=== PATIENT | male | born 1935 | race Hispanic/Latino ===

== ENCOUNTER 2020-02-26 13:09 | Observation (INO) | payer MEDICARE, OTHER ==
[~2020-02-26] VITALS: Ht 152.4 cm; Wt 56.0 kg
[~2020-02-26 13:09] MED LIST: ASPI-1197 PO; CLOP75TA14 PO; GLIP10TA9 PO; LISI-613 PO; METF-446 PO; SIMV40TA59 PO
[2020-02-26] MEDS ORDERED: ASPIRIN 325 MG TABLET ONE (13:35)
[2020-02-26 13:44] LABS: BASOPHILS % (AUTO) 0.6 % (0.0-5.0); EOSINOPHILS % (AUTO) 4.5 % (0.0-8.0); HEMATOCRIT 30.6 % (42-54); LYMPHOCYTES % (AUTO) 24.1 % (21.0-51.0); MEAN CORPUSCULAR HEMOGLOBIN 26.3 pg (27.0-33.0); MEAN CORPUSCULAR HGB CONC 31.7 g/dL (32.0-36.0); MEAN CORPUSCULAR VOLUME 82.9 fL (79-99); MONOCYTES % (AUTO) 7.2 % (3.0-13.0); NEUTROPHILS % (AUTO) 63.4 % (40.0-77.0); PLATELET COUNT (AUTO) 193 K/uL (130-400); RED BLOOD CELL COUNT(AUTO) 3.69 MIL/uL (4.50-6.20); RED CELL DISTRIBUTION WIDTH 13.6 % (11.0-15.5); WHITE BLOOD COUNT (AUTO) 6.4 K/uL (4.8-10.8)
[2020-02-26 13:55] LABS: CREATININE 1.4 mg/dL (0.5-1.5); POTASSIUM 4.4 mmol/L (3.5-5.1)
[2020-02-26 13:56] LABS: INR 1.06 (0.85-1.15); PROTHROMBIN TIME 11.3 SEC (9.6-11.6)
[2020-02-26 13:58] LABS: PARTIAL THROMBOPLASTIN TIME 31.2 SEC (26.3-35.5)
[2020-02-26 13:59] LABS: ALBUMIN 3.4 g/dL (3.5-5.0); BILIRUBIN,TOTAL 0.3 mg/dL (0.2-1.0); TOTAL PROTEIN, SERUM 6.6 g/dL (6.0-8.3)
[2020-02-26 14:11] LABS: B-TYPE NATRIURETIC PEPTIDE 466 pg/mL (0-100)
[2020-02-26] MEDS ORDERED: NITROGLYCERIN 0.4 MG SL TAB SL PRN (16:00)
[2020-02-26] MEDS ORDERED: ONDANSETRON HCL 4 MG/2 ML VIAL IV PRN (16:00)
[2020-02-26] MEDS ORDERED: ACETAMINOPHEN 325 MG TAB PO PRN ×2 (16:00)
[2020-02-26 16:38] LABS: HEMOGLOBIN A1C 8.1 % (4.0-6.0)
[2020-02-26 16:45] LABS: MAGNESIUM 1.7 mg/dL (1.80-2.40); THYROID STIMULATING HORMONE 2.85 uIU/mL (0.36-3.74)
[2020-02-26] MEDS ORDERED: MAGNESIUM 2GM PREMIX 50ML 50 ML IV ONE (17:00)
[2020-02-26] MEDS ORDERED: POTASSIUM CHLORIDE 10MEQ/100ML 100 ML IV PRN (17:30)
[2020-02-26] MEDS ORDERED: LIDOCAINE HCL-MPF 1% 2ML VIAL IV PRN (17:30)
[2020-02-26] MEDS ORDERED: POTASSIUM CHLORIDE 10 MEQ/TAB.SR PO PRN (17:30)
[2020-02-26] MEDS ORDERED: POTASSIUM CHLORIDE 10% ELIXIR 20 MEQ/15 ML UDCUP PO PRN (17:30)
[2020-02-26] MEDS ORDERED: MAGNESIUM 2GM PREMIX 50ML 50 ML IV SCH (17:30)
[2020-02-26 18:07] LABS: APPEARANCE,URINE Clear (CLEAR); BILIRUBIN,URINE Negative (NEGATIVE); COLOR,URINE Yellow (YELLOW); GLUCOSE, URINE (UA) Negative (NEGATIVE); KETONES,URINE Negative (NEGATIVE); LEUKOCYTE ESTERASE ,URINE Negative (NEGATIVE); NITRATE,URINE Negative (NEGATIVE); OCCULT BLOOD,URINE Negative (NEGATIVE); PROTEIN,URINE POS 1+ mg/dL (NEGATIVE); UROBILINOGEN,URINE 0.2 mg/dL (0.2-1.0)
[2020-02-26 18:28] LABS: BACTERIA,URINE Rare /HPF (None Seen); MUCUS,URINE Few LPF (None Seen); RBC,URINE 0-1 /HPF (0-1); SQUAMOUS EPITHELIAL CELL,UR 0-2 /HPF (0-2)
[2020-02-26] MEDS ORDERED: FAMOTIDINE 20MG TAB 20 MG TAB PO SCH (21:00)
[2020-02-26] MEDS ORDERED: ATORVASTATIN CALCIUM 20 MG TABLET PO SCH (21:00)
[2020-02-26] MEDS ORDERED: METOPROLOL TARTRATE 25 MG TAB PO SCH (21:00)
[2020-02-27 04:08] LABS: BASOPHILS % (AUTO) 0.7 % (0.0-5.0); LYMPHOCYTES % (AUTO) 21.5 % (21.0-51.0); MEAN CORPUSCULAR HEMOGLOBIN 26.2 pg (27.0-33.0); MEAN CORPUSCULAR HGB CONC 32.2 g/dL (32.0-36.0); MEAN CORPUSCULAR VOLUME 81.4 fL (79-99); MONOCYTES % (AUTO) 6.2 % (3.0-13.0); NEUTROPHILS % (AUTO) 67.3 % (40.0-77.0); PLATELET COUNT (AUTO) 207 K/uL (130-400); RED BLOOD CELL COUNT(AUTO) 3.93 MIL/uL (4.50-6.20); RED CELL DISTRIBUTION WIDTH 13.5 % (11.0-15.5)
[2020-02-27 04:17] LABS: CREATININE 1.3 mg/dL (0.5-1.5); POTASSIUM 4.1 mmol/L (3.5-5.1)
[2020-02-27] MEDS ORDERED: ENOXAPARIN SODIUM 40 MG/0.4 ML SYRINGE SQ SCH (09:00)
[2020-02-27] MEDS ORDERED: ASPIRIN 325 MG TABLET PO SCH (09:00)
[2020-02-27] MEDS ORDERED: ENOXAPARIN SODIUM 40 MG/0.4 ML SYRINGE SQ ONE (09:20)
[2020-02-27] MEDS ORDERED: METOPROLOL TARTRATE 25 MG TAB ONE (09:20)
[2020-02-27] MEDS ORDERED: ASPIRIN 325 MG TABLET ONE (09:21)
[2020-02-27] MEDS ORDERED: ASPIRIN 81MG TAB.CHEW ONE (09:22)
== END 2020-02-27 16:48 | disposition home or self-care (01) ==
LOC: EDH 13:09 → EDHIP 15:23
PROVIDERS: ADMIT Hospitalist; ATTEND Hospitalist
DX: R07.89 Other chest pain (principal); Z20.828 Contact with and (suspected) exposure to other viral communicable diseases; I12.9 Hypertensive chronic kidney disease with stage 1 through stage 4 chronic kidney disease, or unspecified chronic kidney disease; E11.22 Type 2 diabetes mellitus with diabetic chronic kidney disease; N18.31 Chronic kidney disease, stage 3a; E11.51 Type 2 diabetes mellitus with diabetic peripheral angiopathy without gangrene; E78.5 Hyperlipidemia, unspecified; D64.9 Anemia, unspecified; I24.9 Acute ischemic heart disease, unspecified; I77.89 Other specified disorders of arteries and arterioles; Z79.82 Long term (current) use of aspirin; Z79.84 Long term (current) use of oral hypoglycemic drugs; Z79.899 Other long term (current) drug therapy
CPT/HCPCS: 36415 ×2; 71045; 80048; 80053; 80061; 81001; 82550; 83036; 83735 ×2; 83880; 84443; 84484 ×5; 85025 ×2; 85610; 85730; 87426; 93005 ×6; 99285; G0378 ×25; J1650; J3475; U0003

== ENCOUNTER → 2020-05-12 | Outpatient (CLI) | payer OTHER ==
[~2020-05-12] MED LIST changes: -LISI-613 PO; +LISI20TA24 PO
== END | disposition home or self-care (01) ==
LOC: SHCH 13:12
PROVIDERS: ATTEND Internal Medicine Cardiovascular Disease
DX: I21.4 Non-ST elevation (NSTEMI) myocardial infarction (principal)
CPT/HCPCS: 93306; 93356

== ENCOUNTER → 2020-05-13 | Outpatient (CLI) | payer OTHER ==
[~2020-05-13] VITALS: Ht 157.5 cm; Wt 57.6 kg
[~2020-05-13] MED LIST changes: +REGADENOSON 0.4 MG/5 ML PF SYG IVP SCH
== END | disposition home or self-care (01) ==
LOC: SHCH 07:50
PROVIDERS: ATTEND Internal Medicine Cardiovascular Disease
DX: I21.4 Non-ST elevation (NSTEMI) myocardial infarction (principal); I20.9 Angina pectoris, unspecified
CPT/HCPCS: 78452; 93017; 96374; A9500 ×2

== ENCOUNTER 2021-01-04 10:07 | Inpatient (IN) | payer OTHER ==
[2021-01-04] VITALS (13 sets, daily range): BP systolic 131–162; BP diastolic 65–89
[~2021-01-04] VITALS: Ht 152.4 cm; Wt 63.1 kg
[~2021-01-04 10:07] MED LIST changes: -REGADENOSON 0.4 MG/5 ML PF SYG IVP SCH
[2021-01-04] MEDS ORDERED: HEPARIN 5,000 UNIT VIAL ONE (10:15)
[2021-01-04] MEDS ORDERED: ASPIRIN 325MG TAB ONE (10:15)
[2021-01-04 10:26] LABS: BASOPHILS % (AUTO) 0.4 % (0.0-5.0); HEMATOCRIT 41.4 % (42-54); LYMPHOCYTES % (AUTO) 22.2 % (21.0-51.0); MEAN CORPUSCULAR HEMOGLOBIN 27.8 pg (27.0-33.0); MEAN CORPUSCULAR HGB CONC 32.9 g/dL (32.0-36.0); MEAN CORPUSCULAR VOLUME 84.7 fL (79-99); NEUTROPHILS % (AUTO) 69.1 % (40.0-77.0); PLATELET COUNT (AUTO) 214 K/uL (130-400); RED BLOOD CELL COUNT(AUTO) 4.89 MIL/uL (4.50-6.20); RED CELL DISTRIBUTION WIDTH 14.6 % (11.0-15.5); WHITE BLOOD COUNT (AUTO) 6.9 K/uL (4.8-10.8)
[2021-01-04] MEDS: NITROGLYCERIN 50MG/D5W 250ML 1 BOT ONE ×2 (10:26→10:40)
[2021-01-04] MEDS ORDERED: ASPIRIN 81MG CHEW TAB PO ONE (10:30)
[2021-01-04] MEDS ORDERED: NITROGLYCERIN 0.4 MG SL TAB SL PRN (10:30)
[2021-01-04] MEDS ORDERED: NITROGLYCERIN 50MG/D5W 250ML 250 BOT IV SCH (10:30)
[2021-01-04 10:37] LABS: CREATININE 1.5 mg/dL (0.5-1.5); POTASSIUM 4.3 mmol/L (3.5-5.1)
[2021-01-04 10:43] LABS: INR 1.05 (0.85-1.15); PROTHROMBIN TIME 11.4 SEC (9.6-11.6)
[2021-01-04 10:44] LABS: PARTIAL THROMBOPLASTIN TIME 29.9 SEC (26.3-35.5)
[2021-01-04 10:45] LABS: B-TYPE NATRIURETIC PEPTIDE 786 pg/mL (0-100)
[2021-01-04 10:48] LABS: ALBUMIN 3.9 g/dL (3.5-5.0); BILIRUBIN,TOTAL 0.7 mg/dL (0.2-1.0); TOTAL PROTEIN, SERUM 7.4 g/dL (6.0-8.3)
[2021-01-04] MEDS ORDERED: LABETALOL 20MG VIAL IV ONE ×2 (11:30→17:12)
[2021-01-04] MEDS ORDERED: ACETAMINOPHEN 325 MG TAB PO PRN ×2 (12:30)
[2021-01-04] MEDS ORDERED: ONDANSETRON 4MG INJ IV PRN (12:30)
[2021-01-04] MEDS ORDERED: HEPARIN 10,000 UNIT/10ML (1,000 UNIT/ML) VIAL ONE (15:52)
[2021-01-04] MEDS ORDERED: IOHEXOL 350 MG/ML 100ML INFUS..BTL IV ONE ×2 (15:52→15:53)
[2021-01-04] MEDS ORDERED: IOHEXOL-350 50ML VIAL IV ONE (15:52)
[2021-01-04] MEDS ORDERED: NICARDIPINE 25MG INJ IV ONE (15:52)
[2021-01-04] MEDS ORDERED: NITROGLYCERIN 50MG VIAL IV ONE (15:52)
[2021-01-04] MEDS ORDERED: LIDOCAINE HCL 400MG/20ML VIAL ONE (15:53)
[2021-01-04] MEDS ORDERED: SODIUM BICARB 50MEQ 50ML VIAL 50 ML ONE (15:59)
[2021-01-04] MEDS ORDERED: MIDAZOLAM HCL 1 MG/ML 2ML VIAL ONE (16:41)
[2021-01-04] MEDS ORDERED: FUROSEMIDE 20MG VIAL IVP SCH (18:00)
[2021-01-04] MEDS ORDERED: 0.9%NACL 1000ML 1,000 ML IV SCH (18:00)
[2021-01-04] MEDS ORDERED: CLOPIDOGREL 300MG TAB PO ONE (18:00)
[2021-01-04] MEDS ORDERED: CLOPIDOGREL 300MG TAB PO SCH (19:00)
[2021-01-04] MEDS: FLU VACC QS2021-22(6MOS UP)/PF 60 MCG/0.5 ML ML IM SCH (19:00)
[2021-01-04] MEDS ORDERED: AMLO-257 PO (19:05)
[2021-01-04] MEDS ORDERED: GABA-529 PO (19:05)
[2021-01-04] MEDS ORDERED: CETI10TA87 PO (19:05)
[2021-01-04] MEDS ORDERED: FERS325 PO (19:05)
[2021-01-04] MEDS ORDERED: LOSA50TA64 PO (19:05)
[2021-01-04] MEDS ORDERED: HYDR12.54 PO (19:05)
[2021-01-04] MEDS: METOPROLOL TARTRATE 25 MG TAB PO SCH (21:00)
[2021-01-04 21:59] LABS: APPEARANCE,URINE Clear (CLEAR); BILIRUBIN,URINE Negative (NEGATIVE); COLOR,URINE Yellow (YELLOW); GLUCOSE, URINE (UA) Negative (NEGATIVE); KETONES,URINE Negative (NEGATIVE); LEUKOCYTE ESTERASE ,URINE Trace (NEGATIVE); NITRATE,URINE Negative (NEGATIVE); OCCULT BLOOD,URINE Trace (NEGATIVE); PROTEIN,URINE POS 1+ mg/dL (NEGATIVE); UROBILINOGEN,URINE 0.2 mg/dL (0.2-1.0)
[2021-01-04 22:06] LABS: BACTERIA,URINE Rare /HPF (None Seen); RBC,URINE 0-1 /HPF (0-1); SQUAMOUS EPITHELIAL CELL,UR Rare /HPF (0-2); WBC,URINE 0-1 /HPF (0-1)
[2021-01-05] VITALS (27 sets, daily range): BP systolic 115–161; BP diastolic 58–90
[2021-01-05 03:46] LABS: HEMATOCRIT 36.3 % (42-54); MEAN CORPUSCULAR HEMOGLOBIN 28.3 pg (27.0-33.0); MEAN CORPUSCULAR HGB CONC 33.1 g/dL (32.0-36.0); MEAN CORPUSCULAR VOLUME 85.6 fL (79-99); RED BLOOD CELL COUNT(AUTO) 4.24 MIL/uL (4.50-6.20); RED CELL DISTRIBUTION WIDTH 14.6 % (11.0-15.5); WHITE BLOOD COUNT (AUTO) 5.8 K/uL (4.8-10.8)
[2021-01-05 04:00] LABS: CREATININE 1.5 mg/dL (0.5-1.5); POTASSIUM 4.1 mmol/L (3.5-5.1)
[2021-01-05] MEDS: FAMOTIDINE 20MG VIAL IV SCH (08:13)
[2021-01-05] MEDS: METOPROLOL TARTRATE 25 MG TAB PO SCH (08:14)
[2021-01-05] MEDS: CLOPIDOGREL 75MG TAB PO SCH (08:14)
[2021-01-05] MEDS ORDERED: SPIRONOLACTONE 25 MG TAB PO SCH (09:00)
[2021-01-05] MEDS: ASPIRIN 81 MG EC TAB PO SCH (10:54)
[2021-01-05] MEDS: FUROSEMIDE 20MG VIAL IV SCH ×2 (10:54→20:42)
[2021-01-05] MEDS: ISOSORBIDE MONO 30MG SR TAB PO SCH (10:55)
[2021-01-05] MEDS: CARVEDILOL 6.25 MG TABLET PO SCH ×2 (10:55→21:18)
[2021-01-05] MEDS: LOSARTAN 25 MG TABLET PO SCH (10:57)
[2021-01-05] MEDS: FLU VACC QS2021-22(6MOS UP)/PF 60 MCG/0.5 ML ML IM SCH (16:10)
[2021-01-06] VITALS (15 sets, daily range): BP systolic 123–166; BP diastolic 59–70
[2021-01-06 06:08] LABS: BASOPHILS % (AUTO) 0.8 % (0.0-5.0); EOSINOPHILS % (AUTO) 4.3 % (0.0-8.0); HEMATOCRIT 36.5 % (42-54); LYMPHOCYTES % (AUTO) 18.3 % (21.0-51.0); MEAN CORPUSCULAR HEMOGLOBIN 28.1 pg (27.0-33.0); MEAN CORPUSCULAR HGB CONC 32.3 g/dL (32.0-36.0); MEAN CORPUSCULAR VOLUME 86.9 fL (79-99); MONOCYTES % (AUTO) 8.3 % (3.0-13.0); NEUTROPHILS % (AUTO) 68.1 % (40.0-77.0); PLATELET COUNT (AUTO) 154 K/uL (130-400); RED CELL DISTRIBUTION WIDTH 14.6 % (11.0-15.5); WHITE BLOOD COUNT (AUTO) 4.9 K/uL (4.8-10.8)
[2021-01-06 06:23] LABS: MAGNESIUM 1.6 mg/dL (1.80-2.40); POTASSIUM 4.1 mmol/L (3.5-5.1)
[2021-01-06] MEDS: ASPIRIN 81 MG EC TAB PO SCH (08:59)
[2021-01-06] MEDS: FAMOTIDINE 20MG VIAL IV SCH (08:59)
[2021-01-06] MEDS: FUROSEMIDE 20MG VIAL IV SCH ×2 (08:59→20:41)
[2021-01-06] MEDS: ISOSORBIDE MONO 30MG SR TAB PO SCH (09:01)
[2021-01-06] MEDS: CARVEDILOL 6.25 MG TABLET PO SCH ×2 (09:01→20:42)
[2021-01-06] MEDS: CLOPIDOGREL 75MG TAB PO SCH (09:02)
[2021-01-06] MEDS: FLU VACC QS2021-22(6MOS UP)/PF 60 MCG/0.5 ML ML IM SCH (09:23)
[2021-01-06] MEDS ORDERED: MAGNESIUM 2GM PREMIX 50ML 50 ML IV PRN (09:30)
[2021-01-06] MEDS: LOSARTAN 25 MG TABLET PO SCH (13:47)
[2021-01-06 17:22] LABS: CREATININE 2.5 mg/dL (0.5-1.5); POTASSIUM 4.3 mmol/L (3.5-5.1)
[2021-01-06] MEDS: INSULIN HUMULIN R 100 UNIT/ML 3ML SQ SCH (20:53)
[2021-01-07 03:26] VITALS: BP 120/49
[2021-01-07] MEDS: INSULIN HUMULIN R 100 UNIT/ML 3ML SQ SCH ×5 (06:31→20:40)
[2021-01-07 06:56] LABS: BASOPHILS % (AUTO) 0.6 % (0.0-5.0); EOSINOPHILS % (AUTO) 4.9 % (0.0-8.0); HEMATOCRIT 36.8 % (42-54); LYMPHOCYTES % (AUTO) 19.7 % (21.0-51.0); MEAN CORPUSCULAR HEMOGLOBIN 27.8 pg (27.0-33.0); MEAN CORPUSCULAR HGB CONC 32.9 g/dL (32.0-36.0); MEAN CORPUSCULAR VOLUME 84.4 fL (79-99); MONOCYTES % (AUTO) 9.2 % (3.0-13.0); NEUTROPHILS % (AUTO) 65.1 % (40.0-77.0); PLATELET COUNT (AUTO) 169 K/uL (130-400); RED BLOOD CELL COUNT(AUTO) 4.36 MIL/uL (4.50-6.20); RED CELL DISTRIBUTION WIDTH 14.2 % (11.0-15.5); WHITE BLOOD COUNT (AUTO) 6.3 K/uL (4.8-10.8)
[2021-01-07 07:09] LABS: CREATININE 2.1 mg/dL (0.5-1.5); POTASSIUM 3.9 mmol/L (3.5-5.1)
[2021-01-07 08:05] VITALS: BP 144/63
[2021-01-07] MEDS: FAMOTIDINE 20MG TAB PO SCH (08:08)
[2021-01-07] MEDS: ASPIRIN 81 MG EC TAB PO SCH (08:08)
[2021-01-07] MEDS: ISOSORBIDE MONO 30MG SR TAB PO SCH (08:09)
[2021-01-07] MEDS: CARVEDILOL 6.25 MG TABLET PO SCH ×2 (08:09→20:41)
[2021-01-07] MEDS: CLOPIDOGREL 75MG TAB PO SCH (08:10)
[2021-01-07] MEDS: LOSARTAN 25 MG TABLET PO SCH (08:10)
[2021-01-07] MEDS ORDERED: FUROSEMIDE 20 MG TABLET PO SCH (09:00)
[2021-01-07 10:57] VITALS: BP 121/55
[2021-01-07 15:50] VITALS: BP 129/71
[2021-01-07 19:14] VITALS: BP 137/59
[2021-01-07 23:43] VITALS: BP 149/75
[2021-01-08 00:07] LABS: CREATININE,URINE RANDOM 55 mg/dL (30-135); SODIUM,URINE RANDOM 36 mmol/l (40-220)
[2021-01-08 03:15] VITALS: BP 143/63
[2021-01-08 04:16] LABS: BASOPHILS % (AUTO) 0.7 % (0.0-5.0); EOSINOPHILS % (AUTO) 4.8 % (0.0-8.0); HEMATOCRIT 35.3 % (42-54); LYMPHOCYTES % (AUTO) 26.5 % (21.0-51.0); MEAN CORPUSCULAR HEMOGLOBIN 27.9 pg (27.0-33.0); MEAN CORPUSCULAR HGB CONC 32.9 g/dL (32.0-36.0); MEAN CORPUSCULAR VOLUME 84.9 fL (79-99); MONOCYTES % (AUTO) 10.6 % (3.0-13.0); NEUTROPHILS % (AUTO) 57.2 % (40.0-77.0); PLATELET COUNT (AUTO) 162 K/uL (130-400); RED BLOOD CELL COUNT(AUTO) 4.16 MIL/uL (4.50-6.20); WHITE BLOOD COUNT (AUTO) 5.5 K/uL (4.8-10.8)
[2021-01-08 04:25] LABS: CREATININE 1.9 mg/dL (0.5-1.5); POTASSIUM 3.8 mmol/L (3.5-5.1)
[2021-01-08] MEDS: INSULIN HUMULIN R 100 UNIT/ML 3ML SQ SCH ×3 (06:15→16:30)
[2021-01-08 08:05] VITALS: BP 159/68
[2021-01-08] MEDS ORDERED: LOSARTAN 25 MG TABLET PO SCH (10:00)
[2021-01-08] MEDS: ASPIRIN 81 MG EC TAB PO SCH (10:24)
[2021-01-08] MEDS: FAMOTIDINE 20MG TAB PO SCH (10:24)
[2021-01-08] MEDS: CARVEDILOL 6.25 MG TABLET PO SCH (10:24)
[2021-01-08] MEDS: ISOSORBIDE MONO 30MG SR TAB PO SCH (10:24)
[2021-01-08] MEDS: CLOPIDOGREL 75MG TAB PO SCH (10:25)
[2021-01-08] MEDS ORDERED: FUROSEMIDE 20 MG TABLET PO SCH (11:00)
[2021-01-08 11:19] VITALS: BP 153/66
[2021-01-08] MEDS ORDERED: CARV6.2579 PO (15:27)
[2021-01-08] MEDS ORDERED: CLOP75TA14 PO (15:27)
[2021-01-08] MEDS ORDERED: SPIR25TA6 PO (15:27)
[2021-01-08] MEDS ORDERED: Isosorbide Mono 30MG Sr Tab PO (15:27)
[2021-01-08] MEDS ORDERED: ASPI-1197 PO (15:27)
[2021-01-08] MEDS ORDERED: LINA5TAB PO (15:27)
[2021-01-08] MEDS ORDERED: FURO20TA6 PO (15:27)
[2021-01-08] MEDS ORDERED: FAMO20TA8 PO (15:27)
[2021-01-08] MEDS ORDERED: LOSA25TA2 PO (15:27)
== END 2021-01-08 17:57 | disposition home or self-care (01) | DRG 280 ==
LOC: EDH 10:07 → EDHIP 12:16 → 2CH 18:39 → 2DH 01-05 04:35 → 4AH 01-06 18:40
PROVIDERS: ADMIT Internal Medicine; ATTEND Internal Medicine
PROC: 4A023N7 Measurement of Cardiac Sampling and Pressure, Left Heart, Percutaneous Approach (ICD-10-PCS; principal; 2021-01-04)
PROC: B2111ZZ Fluoroscopy of Multiple Coronary Arteries using Low Osmolar Contrast (ICD-10-PCS; 2021-01-04)
PROC: B2151ZZ Fluoroscopy of Left Heart using Low Osmolar Contrast (ICD-10-PCS; 2021-01-04)
DX: I21.3 ST elevation (STEMI) myocardial infarction of unspecified site (principal); I50.43 Acute on chronic combined systolic (congestive) and diastolic (congestive) heart failure; N17.9 Acute kidney failure, unspecified; I16.1 Hypertensive emergency; I13.0 Hypertensive heart and chronic kidney disease with heart failure and stage 1 through stage 4 chronic kidney disease, or unspecified chronic kidney disease; I25.110 Atherosclerotic heart disease of native coronary artery with unstable angina pectoris; E78.5 Hyperlipidemia, unspecified; E78.00 Pure hypercholesterolemia, unspecified; E11.51 Type 2 diabetes mellitus with diabetic peripheral angiopathy without gangrene; I25.5 Ischemic cardiomyopathy; N18.30 Chronic kidney disease, stage 3 unspecified; E11.22 Type 2 diabetes mellitus with diabetic chronic kidney disease; Z66 Do not resuscitate; N14.1 Nephropathy induced by other drugs, medicaments and biological substances; T50.8X5A Adverse effect of diagnostic agents, initial encounter; I25.2 Old myocardial infarction; Z79.02 Long term (current) use of antithrombotics/antiplatelets; Z79.82 Long term (current) use of aspirin; Z79.899 Other long term (current) drug therapy; Y92.89 Other specified places as the place of occurrence of the external cause; Z82.3 Family history of stroke; Z83.3 Family history of diabetes mellitus; Z82.5 Family history of asthma and other chronic lower respiratory diseases; Z82.49 Family history of ischemic heart disease and other diseases of the circulatory system; Z82.0 Family history of epilepsy and other diseases of the nervous system
CPT/HCPCS: 36415; 71045; 76770; 80048; 80053; 81001; 82550; 82570; 82948; 83735; 83874; 83880; 84300; 84484; 85025; 85027; 85610; 85730; 93005; 93306; 93356; 93454; 93458; 99156; 99157; 99291; C1760; C1894; G0378; J1644; J1815; J1940; J2250; J2405; J3475; J3490; Q2035; Q9967

== ENCOUNTER 2021-09-02 16:33 | Emergency (ER) | payer MEDICARE, OTHER ==
[~2021-09-02] VITALS: Ht 154.9 cm; Wt 59.0 kg
[~2021-09-02 16:33] MED LIST changes: +CARV6.2579 PO; +CETI10TA87 PO; +FAMO20TA8 PO; +FERS325 PO; +FURO20TA6 PO; +GABA-529 PO; -GLIP10TA9 PO; +Isosorbide Mono 30MG Sr Tab PO; +LINA5TAB PO; -LISI20TA24 PO; +LOSA25TA2 PO; -METF-446 PO; +SPIR25TA6 PO
[2021-09-02 17:24] LABS: BASOPHILS % (AUTO) 0.3 % (0.0-5.0); EOSINOPHILS % (AUTO) 2.8 % (0.0-8.0); HEMATOCRIT 28.3 % (42-54); LYMPHOCYTES % (AUTO) 8.1 % (21.0-51.0); MEAN CORPUSCULAR HEMOGLOBIN 28.3 pg (27.0-33.0); MEAN CORPUSCULAR HGB CONC 33.9 g/dL (32.0-36.0); MEAN CORPUSCULAR VOLUME 83.5 fL (79-99); MONOCYTES % (AUTO) 9.4 % (3.0-13.0); NEUTROPHILS % (AUTO) 78.5 % (40.0-77.0); PLATELET COUNT (AUTO) 128 K/uL (130-400); RED BLOOD CELL COUNT(AUTO) 3.39 MIL/uL (4.50-6.20); RED CELL DISTRIBUTION WIDTH 12.8 % (11.0-15.5); WHITE BLOOD COUNT (AUTO) 5.8 K/uL (4.8-10.8)
[2021-09-02 17:36] LABS: INR 1.04 (0.85-1.15); PROTHROMBIN TIME 11.3 SEC (9.6-11.6)
[2021-09-02 17:37] LABS: PARTIAL THROMBOPLASTIN TIME 31.4 SEC (26.3-35.5)
[2021-09-02 17:46] LABS: CREATININE 3.4 mg/dL (0.5-1.5); POTASSIUM 4.8 mmol/L (3.5-5.1)
[2021-09-02 17:55] LABS: ALBUMIN 3.6 g/dL (3.5-5.0); TOTAL PROTEIN, SERUM 7.1 g/dL (6.0-8.3)
[2021-09-02] MEDS ORDERED: D-ME1POW16 PO (18:33)
[2021-09-02 18:46] VITALS: BP 127/51
== END 2021-09-02 18:46 | disposition home or self-care (01) ==
LOC: EDH 16:33
DX: U07.1 COVID-19 (principal); D64.9 Anemia, unspecified; E11.65 Type 2 diabetes mellitus with hyperglycemia; N28.9 Disorder of kidney and ureter, unspecified; E78.00 Pure hypercholesterolemia, unspecified; I10 Essential (primary) hypertension; Z79.82 Long term (current) use of aspirin; Z79.84 Long term (current) use of oral hypoglycemic drugs; Z79.899 Other long term (current) drug therapy
CPT/HCPCS: 99285; 71045; 87635; 82550; 84484; 80053; 85025; 85610; 85730; 87040 ×2; 87880; 87804 ×2; 83605; 36415; 93005; C9803

== ENCOUNTER 2022-02-11 10:27 | Inpatient (IN) | payer MEDICARE, OTHER ==
[~2022-02-11] VITALS: Ht 157.5 cm; Wt 59.7 kg
[~2022-02-11 10:27] MED LIST changes: +CLOP-31 PO; -CLOP75TA14 PO; +D-ME1POW16 PO
[2022-02-11 11:29] LABS: BASOPHILS % (AUTO) 0.5 % (0.0-5.0); EOSINOPHILS % (AUTO) 9.3 % (0.0-8.0); HEMATOCRIT 25.6 % (42-54); MEAN CORPUSCULAR HEMOGLOBIN 29.1 pg (27.0-33.0); MEAN CORPUSCULAR HGB CONC 33.6 g/dL (32.0-36.0); MEAN CORPUSCULAR VOLUME 86.5 fL (79-99); MONOCYTES % (AUTO) 7.1 % (3.0-13.0); NEUTROPHILS % (AUTO) 69.6 % (40.0-77.0); PLATELET COUNT (AUTO) 137 K/uL (130-400); RED BLOOD CELL COUNT(AUTO) 2.96 MIL/uL (4.50-6.20); RED CELL DISTRIBUTION WIDTH 13.3 % (11.0-15.5); WHITE BLOOD COUNT (AUTO) 5.5 K/uL (4.8-10.8)
[2022-02-11] MEDS ORDERED: ASPIRIN 81MG CHEW TAB PO ONE (11:30)
[2022-02-11] MEDS ORDERED: NITROGLYCERIN 1GM OINT 1 INCH/1GM TD ONE (11:30)
[2022-02-11 11:39] LABS: CREATININE 5.2 mg/dL (0.5-1.5); POTASSIUM 5.4 mmol/L (3.5-5.1)
[2022-02-11 11:44] LABS: ALBUMIN 3.8 g/dL (3.5-5.0); TOTAL PROTEIN, SERUM 6.8 g/dL (6.0-8.3)
[2022-02-11] MEDS ORDERED: 0.9%NACL 1000ML 1,000 ML IV ONE (13:30)
[2022-02-11] MEDS ORDERED: ASPIRIN 81MG CHEW TAB ONE (17:58)
[2022-02-11] MEDS ORDERED: ONDANSETRON 4MG INJ IVP PRN (18:30)
[2022-02-11] MEDS ORDERED: DiphenhydrAMINE HCL 50 MG/ML VIAL IV PRN (18:30)
[2022-02-11] MEDS ORDERED: CLONIDINE HCL 0.1 MG TABLET PO PRN (18:30)
[2022-02-11] MEDS ORDERED: ACETAMINOPHEN 325 MG TAB PO PRN ×2 (18:30→20:00)
[2022-02-11] MEDS ORDERED: LACTULOSE 20 GM/30 ML UDCUP PO PRN (18:30)
[2022-02-11] MEDS ORDERED: DIPHENHYDRAMINE HCL 25 MG CAPSULE PO PRN (18:30)
[2022-02-11] MEDS ORDERED: NITROGLYCERIN 0.4 MG SL TAB SL PRN (18:30)
[2022-02-11] MEDS ORDERED: ZOLPIDEM TARTRATE 5 MG TAB PO PRN (18:30)
[2022-02-11] MEDS ORDERED: GUAIFENESIN-DM 200/20 MG 10 ML PO PRN (18:30)
[2022-02-11 19:33] VITALS: BP 163/67
[2022-02-11] MEDS ORDERED: PHARMACY COMMUNICATION MISC SCH (20:00)
[2022-02-11] MEDS ORDERED: LIDOCAINE HCL-MPF 1% 2ML VIAL IV PRN (20:00)
[2022-02-11] MEDS ORDERED: GLUCAGON 1MG KIT 1 MG ML IM PRN (20:00)
[2022-02-11] MEDS ORDERED: KCL 20 MEQ ERTAB PO PRN (20:00)
[2022-02-11] MEDS ORDERED: DEXTROSE 50%-WATER 50 ML DISP.SYRIN IV PRN (20:00)
[2022-02-11] MEDS ORDERED: MAG/ALUM/SIMETH 30 ML UDCUP PO PRN (20:00)
[2022-02-11] MEDS ORDERED: POTASSIUM CHLORIDE 10% ELIXIR 20 MEQ/15 ML UDCUP PO PRN (20:00)
[2022-02-11] MEDS ORDERED: POTASSIUM CHLORIDE 10MEQ/100ML 100 ML IV PRN (20:00)
[2022-02-12] VITALS: BP 128/72
[2022-02-12 03:42] LABS: HEMATOCRIT 24.2 % (42-54); MEAN CORPUSCULAR HGB CONC 33.9 g/dL (32.0-36.0); MEAN CORPUSCULAR VOLUME 85.5 fL (79-99); RED BLOOD CELL COUNT(AUTO) 2.83 MIL/uL (4.50-6.20); RED CELL DISTRIBUTION WIDTH 13.2 % (11.0-15.5); WHITE BLOOD COUNT (AUTO) 5.6 K/uL (4.8-10.8)
[2022-02-12 03:55] LABS: CREATININE 3.9 mg/dL (0.5-1.5); POTASSIUM 5.5 mmol/L (3.5-5.1)
[2022-02-12 04:00] VITALS: BP 138/70
[2022-02-12 07:00] VITALS: BP 115/51
[2022-02-12] MEDS: INSULIN HUMULIN R 100 UNIT/ML 3ML SQ SCH ×4 (07:22→20:58)
[2022-02-12 11:00] VITALS: BP 146/54
[2022-02-12] MEDS ORDERED: ASPIRIN 81MG CHEW TAB PO ONE (12:30)
[2022-02-12] MEDS ORDERED: SODIUM ZIRCONIUM CYCLOSILICATE 5 GM POWD.PACK PO SCH (12:30)
[2022-02-12] MEDS ORDERED: CLOPIDOGREL 75MG TAB PO ONE (12:30)
[2022-02-12] MEDS ORDERED: FURO40TA5 PO (12:35)
[2022-02-12] MEDS ORDERED: GLIP10TA9 PO (12:36)
[2022-02-12] MEDS ORDERED: HEPARIN 25,000 UNITS/250ML D5W 250 ML IV SCH (13:00)
[2022-02-12] MEDS ORDERED: ASPIRIN 81MG CHEW TAB PO SCH (13:00)
[2022-02-12 13:24] LABS: BASOPHILS % (AUTO) 0.8 % (0.0-5.0); EOSINOPHILS % (AUTO) 13.1 % (0.0-8.0); LYMPHOCYTES % (AUTO) 12.9 % (21.0-51.0); MEAN CORPUSCULAR HEMOGLOBIN 29.1 pg (27.0-33.0); MEAN CORPUSCULAR HGB CONC 33.6 g/dL (32.0-36.0); MEAN CORPUSCULAR VOLUME 86.5 fL (79-99); MONOCYTES % (AUTO) 7.2 % (3.0-13.0); NEUTROPHILS % (AUTO) 65.6 % (40.0-77.0); PLATELET COUNT (AUTO) 143 K/uL (130-400); RED BLOOD CELL COUNT(AUTO) 2.89 MIL/uL (4.50-6.20); RED CELL DISTRIBUTION WIDTH 13.2 % (11.0-15.5)
[2022-02-12] MEDS ORDERED: CARVEDILOL 3.125 MG TABLET PO ONE (13:30)
[2022-02-12 13:38] LABS: INR 1.01 (0.85-1.15)
[2022-02-12 13:39] LABS: PARTIAL THROMBOPLASTIN TIME 29.8 SEC (26.3-35.5)
[2022-02-12] MEDS: NITROGLYCERIN 1GM OINT 1 INCH/1GM TD SCH ×2 (14:07→21:00)
[2022-02-12 16:00] VITALS: BP 146/66
[2022-02-12 19:06] VITALS: BP 149/71
[2022-02-12] MEDS: CARVEDILOL 3.125 MG TABLET PO SCH (21:00)
[2022-02-12] MEDS ORDERED: ATORVASTATIN 40 MG TABLET PO SCH (21:00)
[2022-02-13 00:06] VITALS: BP 145/66
[2022-02-13 03:06] VITALS: BP 149/56
[2022-02-13 03:47] LABS: BASOPHILS % (AUTO) 0.6 % (0.0-5.0); EOSINOPHILS % (AUTO) 10.5 % (0.0-8.0); HEMATOCRIT 24.9 % (42-54); LYMPHOCYTES % (AUTO) 15.3 % (21.0-51.0); MEAN CORPUSCULAR HEMOGLOBIN 28.6 pg (27.0-33.0); MEAN CORPUSCULAR HGB CONC 32.9 g/dL (32.0-36.0); MEAN CORPUSCULAR VOLUME 86.8 fL (79-99); MONOCYTES % (AUTO) 6.8 % (3.0-13.0); NEUTROPHILS % (AUTO) 66.4 % (40.0-77.0); PLATELET COUNT (AUTO) 137 K/uL (130-400); RED BLOOD CELL COUNT(AUTO) 2.87 MIL/uL (4.50-6.20); RED CELL DISTRIBUTION WIDTH 13.1 % (11.0-15.5)
[2022-02-13 03:57] LABS: INR 1.06 (0.85-1.15); PROTHROMBIN TIME 11.5 SEC (9.6-11.6)
[2022-02-13 04:07] LABS: % IRON SATURATION 37.1 % (30-44)
[2022-02-13 04:09] LABS: B-TYPE NATRIURETIC PEPTIDE 332 pg/mL (0-100)
[2022-02-13 04:15] LABS: PARTIAL THROMBOPLASTIN TIME > 139.0 SEC (26.3-35.5)
[2022-02-13 04:17] LABS: CREATININE 3.5 mg/dL (0.5-1.5); PHOSPHORUS 3.9 mg/dL (2.5-4.9); POTASSIUM 5.3 mmol/L (3.5-5.1)
[2022-02-13 07:00] VITALS: BP 151/59
[2022-02-13] MEDS: INSULIN HUMULIN R 100 UNIT/ML 3ML SQ SCH ×2 (07:04→11:30)
[2022-02-13 08:00] VITALS: BP 151/59
[2022-02-13] MEDS ORDERED: CLOPIDOGREL 75MG TAB PO SCH (09:00)
[2022-02-13] MEDS ORDERED: ASPIRIN 81MG CHEW TAB PO SCH (09:00)
[2022-02-13] MEDS ORDERED: TAMSULOSIN HCL 0.4 MG CAP.ER.24H PO SCH (09:00)
[2022-02-13] MEDS: NITROGLYCERIN 1GM OINT 1 INCH/1GM TD SCH ×2 (09:09→14:14)
[2022-02-13] MEDS: CARVEDILOL 3.125 MG TABLET PO SCH (09:10)
[2022-02-13] MEDS ORDERED: KAYEXALATE 15GM/60ML PO SCH (10:00)
[2022-02-13] MEDS ORDERED: AMLODIPINE 5 MG TAB PO ONE (10:00)
[2022-02-13] MEDS ORDERED: AMLODIPINE 5 MG TAB PO SCH (10:00)
[2022-02-13] MEDS ORDERED: EPOETIN ALFA-EPBX (NON-ESRD) 10,000 UNIT/ML VIAL SQ SCH ×2 (10:00→12:30)
[2022-02-13 11:00] VITALS: BP 144/63
[2022-02-13] MEDS ORDERED: CITRIC ACID/SODIUM CITRATE 30 ML UDCUP PO SCH (14:00)
[2022-02-13 16:00] VITALS: BP 143/53
[2022-02-14] MEDS ORDERED: GABAPENTIN 100 MG CAPSULE PO SCH (09:00)
[2022-02-14] MEDS ORDERED: AMLODIPINE 5 MG TAB PO SCH (09:00)
== END 2022-02-13 17:15 | disposition home or self-care (01) | DRG 281 ==
LOC: EDH 10:27 → EDHIP 15:45 → 2AH 17:45
PROVIDERS: ADMIT Internal Medicine; ATTEND Internal Medicine
DX: I21.4 Non-ST elevation (NSTEMI) myocardial infarction (principal); E87.1 Hypo-osmolality and hyponatremia; N17.9 Acute kidney failure, unspecified; N18.4 Chronic kidney disease, stage 4 (severe); I13.0 Hypertensive heart and chronic kidney disease with heart failure and stage 1 through stage 4 chronic kidney disease, or unspecified chronic kidney disease; I50.42 Chronic combined systolic (congestive) and diastolic (congestive) heart failure; E11.22 Type 2 diabetes mellitus with diabetic chronic kidney disease; Z66 Do not resuscitate; E87.5 Hyperkalemia; I16.0 Hypertensive urgency; D64.9 Anemia, unspecified; E78.00 Pure hypercholesterolemia, unspecified; I25.10 Atherosclerotic heart disease of native coronary artery without angina pectoris; I25.5 Ischemic cardiomyopathy; Z79.4 Long term (current) use of insulin; Z79.02 Long term (current) use of antithrombotics/antiplatelets; Z79.82 Long term (current) use of aspirin; Z79.84 Long term (current) use of oral hypoglycemic drugs; Z79.899 Other long term (current) drug therapy; Z82.0 Family history of epilepsy and other diseases of the nervous system; Z82.3 Family history of stroke; Z82.49 Family history of ischemic heart disease and other diseases of the circulatory system; Z82.5 Family history of asthma and other chronic lower respiratory diseases; Z83.3 Family history of diabetes mellitus; Z87.891 Personal history of nicotine dependence
CPT/HCPCS: 36415; 71045; 80048; 80053; 82270; 82550; 82948; 83540; 83550; 83874; 83880; 84100; 84484; 85025; 85027; 85610; 85730; 93005; G0378; J1200; J1644; J7030; Q0163